=== PATIENT | male | born 1995 | race Caucasian/White ===

== ENCOUNTER 2016-10-10 17:15 | Observation (INO) | payer BC ==
--- NOTE | 2016-10-10 17:26 | EDPHY ---
H & P Time Seen by Provider: 10/10/16 17:15 HPI/ROS: CHIEF COMPLAINT: Syncope HISTORY OF PRESENT ILLNESS: The patient is a 21-year-old male who presents emergency department after having a syncopal episode. The patient was in the grocery store any felt lightheaded and dizzy. He subsequently fainted. He denies any trauma from the fall. While waiting for EMS he drank a bottle of water. EMS arrived they moved him to the ambulance. His initial EKG was unremarkable. When the motel maid rajesh blood the patient's eyes rolled back into his head became unresponsive. He was noted to have a heart rate to 22. His heart rate had mental status improved with no need resuscitation. REVIEW OF SYSTEMS: My complete review of systems is negative except as mentioned in the HPI. Past Medical/Surgical History: Denies Past surgical history: Negative Social history: The patient ate a bowl marijuana today. He does not smoke. Physical Exam: Vitals noted GENERAL: Well-appearing, in no acute distress, alert. HEENT: Eyes normal to inspection, normal pharynx, no signs of dehydration. NECK: No thyromegaly, no lymphadenopathy, supple. No spinal tenderness to palpation. RESPIRATORY: Clear to auscultation bilaterally, no rales, rhonchi or wheezing. CVS: Regular rate and rhythm, no rubs, murmurs, or gallops. ABDOMEN: Soft, nontender, nondistended, no organomegaly. BACK: Normal to inspection, no CVA tenderness. SKIN: Normal color, no rash, warm, dry. No pallor. EXTREMITIES: No pedal edema, no calf tenderness, no Homans sign or cords, no joint swelling. NEURO/PSYCH: Higher functions: Alert and Oriented x3. Normal speech and cognition. Normal mood and affect. Cranial nerves: Normal as tested. Cerebellar: Normal as tested. Good finger to nose, good [id number], normal gait. Peripheral exam: Normal motor exam. Normal sensation. Normal reflexes. Constitutional: Initial Vital Signs Temperature (C) 37.3 C 10/10/16 17:29 Heart Rate 91 10/10/16 17:29 Respiratory Rate 16 10/10/16 17:29 Blood Pressure 110/61 10/10/16 17:29 O2 Sat (%) 98 10/10/16 17:29 O2 Delivery Mode Room Air Allergies/Adverse Reactions: No Known Allergies Allergy (Unverified 10/10/16 17:29) Home Medications: Medication Instructions Recorded NK [No Known Home Meds] 10/10/16 Medical Decision Making - Diagnostics Imaging Results: Imaging Impressions Chest X-Ray 10/10/16 17:28 Impression: Negative frontal chest radiograph. ED Course/Re-evaluation: In the emergency department I met EMS on arrival. I took report from the motel maid. I reviewed the strips from EMS. His initial EKG was unremarkable with normal appearing conduction. He then had a period of bradycardia with a rate of 22. I discussed the plan with the patient. I answered all his questions. Patient had laboratory studies drawn. An EKG and portable chest x- ray were ordered. Patient pacer pads placed. EKG shows normal sinus rhythm, normal rate, normal axis, normal intervals. There are no ST or T-wave abnormalities. EKG is normal as interpreted by me. I reviewed the patient's laboratory studies. Chemistry and CBC were unremarkable. I discussed the case with Dr. Merrill who agreed to admit the patient. The patient is aware the plan. I answered all his questions. I spoke with Dr. Almanza from Cardiology will consult on the patient. Differential Diagnosis: My differential includes but is not limited to bradycardia, syncope, ACS, acute VT, electrolyte abnormality, sugar abnormality - Data Points Laboratory Results: Laboratory Results 10/10/16 17:23 10/10/16 17:23 10/10/16 10/10/16 17:23 17:23 WBC 7.74 10^3/uL 10^3/uL (3.80-9.50) RBC 4.88 10^6/uL 10^6/uL (4.40-6.38) Hgb 15.7 g/dL g/dL (13.7-17.5) Hct 44.7 % % (40.0-51.0) MCV 91.6 fL fL (81.5-99.8) MCH 32.2 pg pg (27.9-34.1) MCHC 35.1 g/dL g/dL (32.4-36.7) RDW 12.1 % % (11.5-15.2) Plt Count 210 10^3/uL 10^3/uL (150-400) MPV 11.8 fL H fL (8.7-11.7) Neut % (Auto) 59.1 % % (39.3-74.2) Lymph % (Auto) 28.9 % % (15.0-45.0) [place] % (Auto) 10.6 % % (4.5-13.0) Eos % (Auto) 0.6 % % (0.6-7.6) Baso % (Auto) 0.5 % % (0.3-1.7) Nucleat RBC Rel Count 0.0 % % (0.0-0.2) Absolute Neuts (auto) 4.57 10^3/uL 10^3/uL (1.70-6.50) Absolute Lymphs (auto) 2.24 10^3/uL 10^3/uL (1.00-3.00) Absolute Monos (auto) 0.82 10^3/uL H 10^3/uL (0.30-0.80) Absolute Eos (auto) 0.05 10^3/uL 10^3/uL (0.03-0.40) Absolute Basos (auto) 0.04 10^3/uL 10^3/uL (0.02-0.10) Absolute Nucleated RBC 0.00 10^3/uL 10^3/uL (0-0.01) Immature Gran % 0.3 % % (0.0-1.1) Immature Gran # 0.02 10^3/uL 10^3/uL (0.00-0.10) Sodium 138 mEq/L mEq/L (134-144) Potassium 3.6 mEq/L mEq/L (3.5-5.2) Chloride 102 mEq/L mEq/L (97-110) Carbon Dioxide 21 mEq/l L mEq/l (22-31) Anion Gap 15 mEq/L mEq/L (8-16) BUN 19 mg/dL mg/dL (7-23) Creatinine 1.1 mg/dL mg/dL (0.7-1.3) Estimated GFR > 60 Glucose 117 mg/dL H mg/dL (70-100) Calcium 9.7 mg/dL mg/dL (8.5-10.4) Troponin I Pending Departure - Departure Disposition: [facility] Inpatient Acute Clinical Impression: Symptomatic bradycardia Syncope Qualifiers: Syncope type: unspecified Qualified Code(s): R55 - Syncope and collapse Condition: Good Referrals: Patient,NotPresent [Primary Care Provider] - As per Instructions
--- NOTE | 2016-10-10 17:31 | CPEKG ---
Heart Rate: 90 RR Interval: 667 P-R Interval: 168 QRSD Interval: 98 QT Interval: 360 QTC Interval: 441 P [place]: 47 QRS [place]: 72 T Wave [place]: 19 EKG Severity - NORMAL ECG - EKG Impression: SINUS RHYTHM Electronically Signed By: Aurora Yuen 10-Oct-2016 21:19:25
[2016-10-10 17:38] LABS: % IMMATURE GRANULYOCYTES 0.3 % (0.0-1.1); ABSOLUTE IMMATURE GRANULOCYTES 0.02 10^3/uL (0.00-0.10); ADD DIFF? NO; ADD MORPH? NO; ADD SCAN? NO; ATYPICAL LYMPHOCYTE FLAG 40 (0-99); FRAGMENT RBC FLAG 0 (0-99); HEMATOCRIT 44.7 % (40.0-51.0); HEMOGLOBIN 15.7 g/dL (13.7-17.5); LEFT SHIFT FLG 0 (0-99); LIPEMIA HEMOLYSIS FLAG 90 (0-99); MEAN CELL HEMOGLOBIN 32.2 pg (27.9-34.1); MEAN CELL HEMOGLOBIN CONCENTR. 35.1 g/dL (32.4-36.7); MEAN CELL VOLUME 91.6 fL (81.5-99.8); MEAN PLATELET VOLUME 11.8 fL (8.7-11.7); PLATELET CLUMPS FLAG 10 (0-99); PLATELET COUNT 210 10^3/uL (150-400); RED BLOOD CELL COUNT 4.88 10^6/uL (4.40-6.38); RED CELL DISTRIBUTION WIDTH 12.1 % (11.5-15.2)
[2016-10-10 17:48] LABS: ANION GAP 15 mEq/L (8-16); CALCIUM 9.7 mg/dL (8.5-10.4); CARBON DIOXIDE 21 mEq/l (22-31); CHLORIDE 102 mEq/L (97-110); CREATININE 1.1 mg/dL (0.7-1.3); GLOMERULAR FILTRATION RATE > 60; GLUCOSE 117 mg/dL (70-100); POTASSIUM 3.6 mEq/L (3.5-5.2); SODIUM 138 mEq/L (134-144)
[2016-10-10 18:00] LABS: TROPONIN I < 0.012 ng/mL (0-0.034)
[2016-10-10] MEDS ORDERED: ACETAMINOPHEN 325 MG TAB PO PRN (18:14)
[2016-10-10] MEDS ORDERED: ONDANSETRON 4 MG/2 ML VIAL IVP PRN (18:14)
[2016-10-10] MEDS ORDERED: ONDANSETRON DISINTEGRATING 4 MG TAB PO PRN (18:14)
[2016-10-10 19:03] LABS: ALBUMIN 4.6 g/dL (3.5-5.0); BILIRUBIN,TOTAL 0.7 mg/dL (0.1-1.4); BILIRUBIN-CONJUGATED 0.2 mg/dL (0.0-0.5); BILIRUBIN-UNCONJUGATED 0.5 mg/dL (0.0-1.1); MAGNESIUM 1.9 mg/dL (1.6-2.3); TOTAL PROTEIN 7.1 g/dL (6.3-8.2)
--- NOTE | 2016-10-10 19:07 | GHP ---
[f rep st] HISTORY AND PHYSICAL DATE OF ADMISSION: 10/10/2016 CHIEF COMPLAINT: Syncope. HISTORY OF PRESENT ILLNESS: The patient is a 21-year-old white male who was walking in [employer] this morning when he got blurred vision and then passed out. Witnesses say that he had some mild jerkin g. He quickly came to but continued to feel light-headed. He put his head between his legs because he was feeling light-headed. He asked for an ambulance to be called. He drank a bottle of water. When the ambulance arrived, they performed an EKG that was normal. A few minutes later however, as they rajesh blood, he once again lost consciousness, and they captured the rhythm on the monitor, ruel pulido showed an almost 3-second pause with a heart rate of 22. It looks like a junctional escape rhyth m. He regained consciousness after several seconds without further intervention and was transported to the hospital. He now feels okay. He does not report any chest pain, shortness of breath, or co ntinued light-headedness. He thinks he got a little bit dehydrated maybe, although he did nothing i n particular over the previous 48 hours to cause dehydration. He did not have any alcohol in the pr evious 24 hours. He did not do any heavy exertion during the previous couple days. He did eat some pot brownies an hour or 2 before the syncopal episode, but he says he has used marijuana very regul jahaira for the last few years and has never had any problems with it. He has both smoked and ingested marijuana without problems in the past and does not think that the pot brownies were likely to have anything to do with this episode. He does report a history of fainting "a handful of times" in his life. The last time he really naz mbers actually completely fainting was at age 15 or 16 while hitting golf balls. PAST MEDICAL HISTORY: Appendectomy age 12. MEDICATIONS: None. SOCIAL HISTORY: Lives with his girlfriend in an apartment. He is currently not working and is anti cipating going on a [place] trip for the next month. He worked as a skin instructor all winter at [employer] and is usually quite active without any difficulty exerting himself. He does not smoke ciga rettes. He drinks an occasional beer but nowhere near every day. He uses marijuana "regularly" but says not every day. SYSTEMS REVIEW: GENERAL: No recent weight change. No fevers. NEUROLOGIC: Denies headaches or an y focal neurologic deficits. VISION: No visual disturbances. ENT: Denies allergies or head conge stion. RESPIRATORY: Denies shortness of breath, cough, and wheezing. CARDIOVASCULAR: No chest pa in or heart palpitations. GI: No nausea, vomiting, diarrhea, or constipation. Denies indigestion. : No problems urinating. EXTREMITIES: Denies edema. MUSCULOSKELETAL: Denies joint pains. S KIN: No chronic skin abnormalities. ENDOCRINE: Denies history of thyroid or diabetes problems. PHYSICAL EXAMINATION: GENERAL: He is a well-developed white male who appears his stated age, sitti ng comfortably on his gurney in the emergency department. VITAL SIGNS: Blood pressure 98/69, heart rate 91, oxygen saturation is 98% on room air, temperature 37.3. EYES: Pupils equal, round, and r eactive to light. Conjunctivae are pink. Throat, mouth, and oropharynx are benign. NECK: Supple without adenopathy or thyromegaly. Carotids are 2+ bilaterally. LUNGS: Clear. HEART: Regular wi thout murmur, gallop, or rub. ABDOMEN: Soft, nontender; without masses or bruits. EXTREMITIES: N o edema. SKIN: Warm and dry. NEUROLOGIC: Alert and oriented. DATABASE: EKG in the emergency department shows normal sinus rhythm at 90 per minute and looks comp letely normal. I reviewed the tracing myself. Chest x-ray, 1 view, is normal. I reviewed the imag e personally. His CBC is completely normal with WBC 7,000 and hematocrit 44.7. His electrolytes ar e normal. Carbon dioxide borderline low at 21. Sodium 138, potassium 3.6, BUN 19, creatinine 1.1, glucose mildly elevated at 117. Troponin negative. IMPRESSION: Syncope. Likely due to extreme vasovagal event; although, his initial episode of synco pe was not preceded by any specific gastrointestinal disturbance or other obvious vasovagal precipit ant. The extremely slow heart rate occurred immediately as he was getting his blood drawn, and is p robably extreme vasovagal syncope. He will be monitored in the hospital overnight, and Cardiology c onsultant will see him in the morning to decide on further testing. I will order an echocardiogram and check and thyroid level. /[id number]/MODL
--- NOTE | 2016-10-11 09:06 | PDCARCONS ---
Cardiology Consult Reason for Consult: syncope Chief Complaint: "I passed out" Requesting Physician: hospitalist History of Present Illness: Patient is a 21 y/o male with unremarkable past cardiovascular history, who presented to [facility] ER via EMS after syncopal event at grocery store. Prodrome was noted with blurred vision and upper extremity numbness/weakness. Patient was reported "out" for about 3-5 seconds. Witnesses "pinched" and rubbed to the patient awake. Patient with awareness of location and surroundings. No speedy "seizure like" activity was noted. After sitting up, the patient once again felt poorly, and requested EMS. EMS arrived and performed ECG without overt pathology noted. During blood draw, the patient had a third syncopal event. Of note, the patient and girlfriend (present with the patient today) had rather potent pot brownies yesterday, did not consume adequate PO fluids, and drove several hours in the car from [place] - all of which may have contributed to the events of yesterday. EMS noted a pause to 3 seconds (post blood draw) as well as what appeared to be a junctional rhythm. Today, the patient is without complaints. No issues with sleep overnight. Echocardiogram (prelim) this morning without gross pathology noted. Remainder of the 12 point review of systems was unremarkable History Information - Allergies/Home Medication List Allergies/Adverse Reactions: No Known Allergies Allergy (Unverified 10/10/16 17:29) Home Medications: NK [No Known Home Meds] 10/10/16 [Last Taken Unknown] I have personally reviewed and updated: family history, medical history, social history, surgical history - Past Medical History no pertinent PMH - Surgical History Reports: no pertinent surgical hx - Family History Positive for: non-pertinent Additional family history: grandfather passed with AR and heavy alcohol use - Social History Smoking Status: Current some day smoker Alcohol Use: Rarely Drug Use: Marijuana Cardiac History - Cardiac History Cardiac Risk Factors: male Timing/Duration: Minutes Severity: severe Severity Scale: 9 Activities at Onset: activity Modifying Factors: improves with: lying down Associated Symptoms: syncope Physical Exam Temp Pulse Resp BP Pulse Ox 36.5 C 55 L 14 102/41 L 94 10/11/16 04:00 10/11/16 04:00 10/11/16 04:00 10/11/16 04:00 10/11/16 04:00 Constitutional: no apparent distress, appears nourished, not in pain Eyes: PERRL Ears, Nose, Mouth, Throat: moist mucous membranes, hearing normal, ears appear normal Cardiovascular: regular rate and rhythym, no murmur, rub, or gallop, No JVD, No edema Peripheral Pulses: 2+: dorsalis-pedis (R), dorsalis-pedis (L) Respiratory: no respiratory distress, no rales or rhonchi, clear to auscultation Gastrointestinal: normoactive bowel sounds Skin: warm, normal color Musculoskeletal: full muscle strength, no muscle tenderness, normal joint ROM Neurologic: AAOx3, sensation intact bilaterally, CN II-XII Intact Psychiatric: interacting appropriately, not anxious, not encephalopathic Lab and Imaging 10/10/16 17:10/10/16: WBC 7.74 10^3/uL (3.80-9.50) 10/10/16: RBC 4.88 10^6/uL (4.40-6.38) 10/10/16: Hgb 15.7 g/dL (13.7-17.5) 10/10/16: Hct 44.7 % (40.0-51.0) 10/10/16: MCV 91.6 fL (81.5-99.8) 10/10/16: MCH 32.2 pg (27.9-34.1) 10/10/16: MCHC 35.1 g/dL (32.4-36.7) 10/10/16: RDW 12.1 % (11.5-15.2) 10/10/16: Plt Count 210 10^3/uL (150-400) 10/10/16: MPV 11.8 fL (8.7-11.7) H 10/10/16: Neut % (Auto) 59.1 % (39.3-74.2) 10/10/16: Lymph % (Auto) 28.9 % (15.0-45.0) 10/10/16: [place] % (Auto) 10.6 % (4.5-13.0) 10/10/16: Eos % (Auto) 0.6 % (0.6-7.6) 10/10/16 17: Baso % (Auto) 0.5 % (0.3-1.7) 10/10/16: Nucleat RBC Rel Count 0.0 % (0.0-0.2) 10/10/16 17: Absolute Neuts (auto) 4.57 10^3/uL (1.70-6.50) 10/10/16: Absolute Lymphs (auto) 2.24 10^3/uL (1.00-3.00) 10/10/16: Absolute Monos (auto) 0.82 10^3/uL (0.30-0.80) H 10/10/16: Absolute Eos (auto) 0.05 10^3/uL (0.03-0.40) 10/10/16: Absolute Basos (auto) 0.04 10^3/uL (0.02-0.10) 10/10/16: Absolute Nucleated RBC 0.00 10^3/uL (0-0.01) 10/10/16: Immature Gran % 0.3 % (0.0-1.1) 10/10/16: Immature Gran # 0.02 10^3/uL (0.00-0.10) 10/10/16 17: Turbidity Cancelled 10/10/16 17: Sodium 138 mEq/L (134-144) 10/10/16 17: Potassium 3.6 mEq/L (3.5-5.2) 10/10/16: Chloride 102 mEq/L (97-110) 10/10/16: Carbon Dioxide 21 mEq/l (22-31) L 10/10/16: Anion Gap 15 mEq/L (8-16) 10/10/16:23 BUN 19 mg/dL (7-23) 10/10/16: Creatinine 1.1 mg/dL (0.7-1.3) 10/10/16 17:23 Estimated GFR > 60 10/10/16 17: Glucose 117 mg/dL (70-100) H 10/10/16 17:23 Calcium 9.7 mg/dL (8.5-10.4) 10/10/16 17: Magnesium 1.9 mg/dL (1.6-2.3) 10/10/16: Total Bilirubin 0.7 mg/dL (0.1-1.4) 10/10/16: Conjugated Bilirubin 0.2 mg/dL (0.0-0.5) 10/10/16: Unconjugated Bilirubin 0.5 mg/dL (0.0-1.1) 10/10/16: Icterus Index Cancelled 10/10/16 17: AST 52 IU/L (17-59) 10/10/16: ALT 48 IU/L (21-72) 10/10/16: Alkaline Phosphatase 48 IU/L (38-126) 10/10/16 Troponin I < 0.012 ng/mL (0-0.034) 10/10/16 Total Protein 7.1 g/dL (6.3-8.2) 10/10/16 Albumin 4.6 g/dL (3.5-5.0) 10/10/16 TSH 2.800 uIU/mL (0.465-4.680) 10/10/16 Specimen Hemolysis Cancelled 10/10/16 Visualized and Interpreted Chest x-ray results: Yes Chest X-ray Interpretation: no infiltrate, normal Visualized and Interpreted EKG results: Yes EKG Interpretation: Positive for: normal sinsus rhythm Telemetry: normal sinus rhythm Echocardiogram: preliminary report with normal left ventricular systolic ejection fraction A/P Assessment: Patient is a 21 y/o male with unremarkable past cardiovascular/medical history who had a syncopal event yesterday. Compounding the event yesterday are dehydration, use of "strong pot cookies", and several hours of travel in car. Since that time, the patient has been feeling well. No chest pains or pressure. Prior syncopal events in the remote past, without work up. ECG with normal sinus rhythm. Junctional rhythm was noted in the setting of likely vasovagal event. Echocardiogram with normal LVEF, wall motion, and chamber dimensions. No striking family history of sudden cardiac . Grossly normal labs. ECG unremarkable. Plan: Recommendations for patient to be seen by cardiology in the outpatient setting later this week. Consider 30 day event monitor Would consciously drink more fluids Curtail use of MMJ Patient was in agreement with these plans, and can be discharged to home today.
[2016-10-11 09:28] VITALS: BP 132/66; PULSE 59; RESP 13; TEMP 97.5; O2SAT 93
--- NOTE | 2016-10-11 10:59 | PDDCSUM ---
Discharge Summary Discharge Summary: Dates of service 10/10-10/11/16 Discharge dx: # syncope # MJ use Consultations: cardiology Procedures: echocardiogram Hospital course by problem # syncope: 2 episodes in one day occurring in the setting of heavy MJ use and both with prodrome. Has occurred in the past as well. Sounds most c/w vasovagal episode, was noted by EMS to be bradycardic with 3 second pauses during second syncopal event. Echo unremarkable. Cardiology recommending f/u for holter/event monitoring. No family hx of sudden . Ok to dc home with precautions given around getting to ground if sxs occur and remaining hydrated # MJ use: patient notes regular use but particularly heavy/strong use during event above, cautioned as above DC home f/u with cardiology Meds: no new meds > 45 min spent in dc more than half in face to face counseling of patient regarding his diagnosis and plans of care after dc
--- NOTE | 2016-10-11 11:40 | ECHO ---
[id number] + + [address] : : [place] [address] : : [phone] + + Adult Echocardiographic Report + -----+ :Name: JOHN VELIZ MStudy Date: 10/11/2016 08:31 AM : : Hospital Admission Number: [id number] Location : 211: :: 1995 Gender: Male Height: 71 in : :Age: 21 yrs Race: WH Weight: 176 lb : :Reason For Study: Bradycardia : : BSA: 2.0 meters2 : + -----+ MMode/2D Measurements \T\ Calculations IVSd: 0.89 cm LVIDd: 5.0 cm FS: 41.4 % Ao root diam: LVPWd: 1.0 cm LVIDs: 2.9 cm EDV(Teich): 2.9 cm 115.9 ml LA dimension: ESV(Teich): 3.3 cm 32.3 ml EF(Teich): 72.1 % LVLd ap4: 9.8 cm SV(MOD-sp4): EDV(MOD-sp4): 76.0 ml 104.0 ml LVLs ap4: 7.7 cm ESV(MOD-sp4): 28.0 ml EF(MOD-sp4): 73.1 % Normal Measurement Values: + + :LVIDd (3.5-5.7cm) IVSd (0.6-1.1cm) LVPWd (0.6-1.1cm) Aortic Root (2.0-3.7cm)Left Atrium (1.5-4.0cm): :LV Vol(d) (76-115ml) LV Vol(s) (29-48ml) Ejec Fraction (50-65%)PV Aaron (0.6- 1.2m/s) TV Aaron (0.4-1.0m/s) : :MV E Aaron (0.8-1.0m/s)MV A Aaron (0.3-1.0m/s)LVOT Aaron (0.7-1.2m/s) Asc Ao Aaron ( 0.9-1.8m/s) : + + Doppler Measurements \T\ Calculations MV E max aaron: Ao V2 max: LV V1 max: TR max aaron: 97.7 cm/sec 137.1 cm/sec 118.0 cm/sec 188.7 cm/sec MV A max aaron: Ao max PG: LV V1 max PG: TR max P.6 cm/sec 7.5 mmHg 5.6 mmHg 14.2 mmHg MV E/A: 3.1 RAP systole: 5.0 mmHg RVSP(TR): 19.2 mmHg Left Ventricle The left ventricle is normal in size and function. There is normal left ventricular wall thickness. Left ventricular systolic function is normal. Ejection Fraction = 70-75%. The left ventricular ejection fraction is calculated at 72.1 %. No regional wall motion abnormalities noted. Right Ventricle The right ventricle is normal in size and function. Atria The left atrial size is normal. Right atrial size is normal. Mitral Valve The mitral valve is normal in structure and function. There is trace mitral regurgitation. Tricuspid Valve Normal tricuspid valve. There is mild tricuspid regurgitation. Right ventricular systolic pressure is normal. Aortic Valve The aortic valve opens well. The aortic valve is trileaflet. There is no aortic stenosis. There is no aortic insufficiency. Pulmonic Valve The pulmonic valve is normal in structure and function. There is no pulmonic valvular regurgitation. Great Vessels The aortic root is normal size. Pericardium/Pleural There is no pericardial effusion. Conclusion A complete two-dimensional transthoracic echocardiogram was performed (2D, M-mode, Doppler and color flow Doppler). (1) Left ventricular systolic ejection fraction was normal (70-75%) - normal wall motion (2) No left ventricular hypertrophy (3) No diastolic dysfunction (4) Normal right ventricular size and function (5) Normal atrial dimensions (6) Physiologic mitral regurgitation (7) Trileaflet aortic valve without sclerosis or insufficiency (8) Mild tricuspid regurgitation - RVSP was within normal limits (9) Grossly normal pulmonic valve (10) No comparison echocardiograms Final Reading Physician: Mahi Piedra signed on 10/11/2016 11:39 AM Ordering Physician: Severiano Merrill Performed By: Leda Tony RD
== END 2016-10-11 12:09 | disposition home or self-care (01) ==
LOC: F2W 18:40
PROVIDERS: ADMIT Internal Medicine; ATTEND Internal Medicine
DX: R55 Syncope and collapse (principal); R00.1 Bradycardia, unspecified; R07.9 Chest pain, unspecified; F12.90 Cannabis use, unspecified, uncomplicated
CPT/HCPCS: 71010; 93005; 93306; G0378